=== PATIENT | female | born 1945 | race Asian ===

== ENCOUNTER 2017-06-18 19:40 | Inpatient (IN) | payer OTHER ==
[~2017-06-18] VITALS: Ht 162.6 cm; Wt 64.6 kg
[2017-06-18 20:53] LABS: microscopic required? NO
[2017-06-18 21:25] LABS: BASOPHIL % 0.5 % (0-2); PLATELET COUNT 240 x10^3mcL (130-400); RED CELL DISTRIBUTION WIDTH 13.5 % (11.5-14.5)
[2017-06-18 21:34] LABS: UA SPECIFIC GRAVITY <=1.005 (1.005-1.035); urine erythrocyte NEGATIVE (NEGATIVE)
[2017-06-18 21:35] LABS: CALCIUM 9.4 mg/dL (8.5-10.1); CARBON DIOXIDE 30.8 mmol/L (21-32); CHLORIDE SERUM 107 mmol/L (98-107); CREATININE SERUM 0.7 mg/dL (0.6-1.0); GFR1 > 60 mL/min; GLUCOSE SERUM 127 mg/dL (74-106); SODIUM SERUM 143 mmol/L (136-145)
[2017-06-18 21:39] LABS: ALBUMIN 3.8 g/dL (3.4-5.0); ALKALINE PHOSPHATASE 77 U/L (46-116); ALT/SGPT 28 U/L (14-59); AST/SGOT 19 U/L (15-37); BILIRUBIN TOTAL 0.3 mg/dL (0.20-1.00); TOTAL PROTEIN, SERUM 7.4 g/dL (6.4-8.2)
[2017-06-18 23:02] VITALS: BP 212/86
[2017-06-18 23:47] LABS: MAGNESIUM 2.5 mg/dL (1.8-2.4)
[2017-06-18 23:50] LABS: FREE T4 0.9 ng/dL (0.76-1.46); T4(THYROXINE) 5.9 ug/dL (4.7-13.3)
[2017-06-18 23:53] LABS: CHOLESTEROL/HDL RATIO 5.7
[2017-06-19 00:01] VITALS: BP 153/82
[2017-06-19 00:16] LABS: T3 TOTAL 0.81 ng/mL
[2017-06-19] MEDS ORDERED: METOPROLOL SUC100 M2 PO (04:34)
[2017-06-19 05:41] VITALS: BP 135/62
[2017-06-19 06:21] LABS: BASOPHIL % 0.4 % (0-2); PLATELET COUNT 211 x10^3mcL (130-400); RED CELL DISTRIBUTION WIDTH 13.1 % (11.5-14.5)
[2017-06-19 10:02] VITALS: BP 157/84
[2017-06-19 13:56] VITALS: BP 147/69
[2017-06-19 17:37] VITALS: Ht 162.6 cm; Wt 64.6 kg
[2017-06-19 18:01] VITALS: BP 156/84
[2017-06-19 21:15] VITALS: BP 157/67
[2017-06-19 22:24] LABS: CALCIUM 9.7 mg/dL (8.5-10.1); CARBON DIOXIDE 28.6 mmol/L (21-32); CHLORIDE SERUM 105 mmol/L (98-107); CREATININE SERUM 0.9 mg/dL (0.6-1.0); GFR1 > 60 mL/min; GLUCOSE SERUM 125 mg/dL (74-106); POTASSIUM SERUM 4.1 mmol/L (3.5-5.1); SODIUM SERUM 139 mmol/L (136-145)
[2017-06-20] VITALS (7 sets, daily range): BP systolic 130–175; BP diastolic 67–79
[2017-06-20 06:15] LABS: BASOPHIL % 0.6 % (0-2); PLATELET COUNT 239 x10^3mcL (130-400)
[2017-06-20 06:29] LABS: MAGNESIUM 2.3 mg/dL (1.8-2.4); PHOSPHOROUS 3.7 mg/dL (2.5-4.9)
[2017-06-21 05:13] VITALS: BP 141/77
[2017-06-21 06:20] LABS: BASOPHIL % 0.5 % (0-2); PLATELET COUNT 227 x10^3mcL (130-400); RED CELL DISTRIBUTION WIDTH 13.2 % (11.5-14.5)
[2017-06-21 06:36] LABS: CALCIUM 9.4 mg/dL (8.5-10.1); CARBON DIOXIDE 26.1 mmol/L (21-32); CHLORIDE SERUM 105 mmol/L (98-107); CREATININE SERUM 0.8 mg/dL (0.6-1.0); GFR1 > 60 mL/min; GLUCOSE SERUM 119 mg/dL (74-106); MAGNESIUM 2.1 mg/dL (1.8-2.4); PHOSPHOROUS 4.6 mg/dL (2.5-4.9); POTASSIUM SERUM 3.7 mmol/L (3.5-5.1); SODIUM SERUM 139 mmol/L (136-145)
[2017-06-21 09:08] VITALS: BP 126/60
[2017-06-21 10:03] VITALS: BP 126/60
[2017-06-21 11:32] VITALS: BP 153/71
[2017-06-21] MEDS ORDERED: LIPI10 PO (12:01)
[2017-06-21] MEDS ORDERED: ZES10 PO (12:01)
[2017-06-21] MEDS ORDERED: MECLIZINE HCL12.5 MG PO (12:03)
[2017-06-21 12:58] VITALS: BP 153/71
== END 2017-06-21 15:58 | disposition home or self-care (01) | DRG 304 ==
LOC: ED 19:40 → DU 22:01
PROVIDERS: Emergency Medicine; ADMIT Family Medicine Sports Medicine
DX: I16.0 Hypertensive urgency (principal); N17.0 Acute kidney failure with tubular necrosis; K72.90 Hepatic failure, unspecified without coma; F41.1 Generalized anxiety disorder; E11.65 Type 2 diabetes mellitus with hyperglycemia; E11.51 Type 2 diabetes mellitus with diabetic peripheral angiopathy without gangrene; E78.5 Hyperlipidemia, unspecified; E83.42 Hypomagnesemia; D64.9 Anemia, unspecified; I37.1 Nonrheumatic pulmonary valve insufficiency; I34.0 Nonrheumatic mitral (valve) insufficiency; I36.1 Nonrheumatic tricuspid (valve) insufficiency; Z68.23 Body mass index [BMI] 23.0-23.9, adult
CPT/HCPCS: 83880; 84439; J0360; J1885; J1940; J7030; Q0092

== ENCOUNTER 2017-07-09 14:27 | Observation (INO) | payer OTHER ==
[~2017-07-09] VITALS: Ht 165.1 cm; Wt 61.5 kg
[~2017-07-09 14:27] MED LIST: LIPI10 PO; MECLIZINE HCL12.5 MG PO; METOPROLOL SUC100 M2 PO; ZES10 PO
[2017-07-09 15:04] LABS: BASOPHIL % 0.4 % (0-2); PLATELET COUNT 260 x10^3mcL (130-400); RED CELL DISTRIBUTION WIDTH 12.8 % (11.5-14.5)
[2017-07-09 15:11] LABS: CALCIUM 8.9 mg/dL (8.5-10.1); CARBON DIOXIDE 33.7 mmol/L (21-32); CHLORIDE SERUM 105 mmol/L (98-107); CREATININE SERUM 0.9 mg/dL (0.6-1.0); GFR1 > 60 mL/min; GLUCOSE SERUM 184 mg/dL (74-106); SODIUM SERUM 141 mmol/L (136-145)
[2017-07-09 15:16] LABS: ALBUMIN 3.7 g/dL (3.4-5.0); ALKALINE PHOSPHATASE 64 U/L (46-116); ALT/SGPT 24 U/L (14-59); AST/SGOT 15 U/L (15-37); BILIRUBIN TOTAL 0.5 mg/dL (0.20-1.00)
[2017-07-09 15:20] LABS: CHOLESTEROL 110 mg/dL (<200)
[2017-07-09 16:05] LABS: UA SPECIFIC GRAVITY 1.015 (1.005-1.035); microscopic required? YES; urine erythrocyte 2+ (NEGATIVE)
[2017-07-09 19:48] LABS: MAGNESIUM 2.5 mg/dL (1.8-2.4)
[2017-07-09 20:29] VITALS: BP 148/65
[2017-07-09 20:30] VITALS: BP 148/65
[2017-07-09 20:33] VITALS: Ht 165.1 cm; Wt 61.5 kg
[2017-07-10 05:26] VITALS: BP 115/70
[2017-07-10 06:23] LABS: BASOPHIL % 0.6 % (0-2); PLATELET COUNT 244 x10^3mcL (130-400)
[2017-07-10 06:55] LABS: CALCIUM 8.5 mg/dL (8.5-10.1); CARBON DIOXIDE 26.5 mmol/L (21-32); CHLORIDE SERUM 108 mmol/L (98-107); CREATININE SERUM 0.7 mg/dL (0.6-1.0); GFR1 > 60 mL/min; GLUCOSE SERUM 125 mg/dL (74-106); POTASSIUM SERUM 3.7 mmol/L (3.5-5.1); SODIUM SERUM 141 mmol/L (136-145)
[2017-07-10 10:09] VITALS: BP 162/83
[2017-07-10 13:36] VITALS: BP 129/79
[2017-07-10 18:19] VITALS: BP 145/82
[2017-07-10] MEDS ORDERED: METFORMIN HYDR500 M1 PO (18:35)
[2017-07-10] MEDS ORDERED: ZES10 PO (18:36)
[2017-07-10] MEDS ORDERED: MECLIZINE HCL12.5 MG PO (18:36)
[2017-07-10] MEDS ORDERED: TOP50 PO (18:43)
[2017-07-10 19:06] VITALS: BP 145/82
[2017-07-11] MEDS ORDERED: BLOOD GLUCOSE1 EAC3 MC (15:34)
[2017-07-11] MEDS ORDERED: BLOOD GLUCOSE1 EACH MC (15:34)
== END 2017-07-10 20:19 | disposition home or self-care (01) | DRG 308 ==
LOC: ED 14:27 → DU 19:05
PROVIDERS: Emergency Medicine; ADMIT Family Medicine
DX: R00.1 Bradycardia, unspecified (principal); N17.0 Acute kidney failure with tubular necrosis; T44.7X5A Adverse effect of beta-adrenoreceptor antagonists, initial encounter; R55 Syncope and collapse; E83.41 Hypermagnesemia; E11.65 Type 2 diabetes mellitus with hyperglycemia; E11.51 Type 2 diabetes mellitus with diabetic peripheral angiopathy without gangrene; I10 Essential (primary) hypertension; D64.9 Anemia, unspecified; E78.5 Hyperlipidemia, unspecified; Z68.24 Body mass index [BMI] 24.0-24.9, adult; Y92.010 Kitchen of single-family (private) house as the place of occurrence of the external cause
CPT/HCPCS: 83880; C1758; G0378; G0480; J7030; Q0092

== ENCOUNTER 2017-09-11 23:33 | Emergency (ER) | payer OTHER ==
[~2017-09-11] VITALS: Ht 160 cm; Wt 60.8 kg
[~2017-09-11 23:33] MED LIST changes: +BLOOD GLUCOSE1 EAC3 MC; +BLOOD GLUCOSE1 EACH MC; +METFORMIN HYDR500 M1 PO; +TOP50 PO
[2017-09-11 23:39] VITALS: Ht 160 cm; Wt 60.8 kg
[2017-09-12 01:44] LABS: BASOPHIL % 0.6 % (0-2); PLATELET COUNT 254 x10^3mcL (130-400); RED CELL DISTRIBUTION WIDTH 13.6 % (11.5-14.5)
[2017-09-12 02:07] LABS: CALCIUM 9.1 mg/dL (8.5-10.1); CHLORIDE SERUM 107 mmol/L (98-107); CREATININE SERUM 0.8 mg/dL (0.6-1.0); GFR1 > 60 mL/min; GLUCOSE SERUM 130 mg/dL (74-106); POTASSIUM SERUM 4.1 mmol/L (3.5-5.1); SODIUM SERUM 142 mmol/L (136-145)
[2017-09-12 02:11] LABS: ALBUMIN 3.5 g/dL (3.4-5.0); ALKALINE PHOSPHATASE 87 U/L (46-116); ALT/SGPT 23 U/L (14-59); AST/SGOT 22 U/L (15-37); BILIRUBIN TOTAL 0.24 mg/dL (0.20-1.00); TOTAL PROTEIN, SERUM 7.2 g/dL (6.4-8.2)
[2017-09-12 02:48] VITALS: BP 144/81
== END 2017-09-12 02:48 | disposition home or self-care (01) ==
LOC: ED 23:33
PROVIDERS: Emergency Medicine
DX: R07.89 Other chest pain (principal); J06.9 Acute upper respiratory infection, unspecified; J21.9 Acute bronchiolitis, unspecified; J30.9 Allergic rhinitis, unspecified; I10 Essential (primary) hypertension; E11.9 Type 2 diabetes mellitus without complications
CPT/HCPCS: 36415; Q0163

== ENCOUNTER 2018-05-02 15:09 | Inpatient (IN) | payer OTHER ==
[~2018-05-02] VITALS: Ht 162.6 cm; Wt 60.0 kg
[2018-05-02 15:28] VITALS: Ht 162.6 cm; Wt 60.0 kg
[2018-05-02 16:44] LABS: BASOPHIL % 0.4 % (0-2); CALCIUM 9.3 mg/dL (8.5-10.1); CARBON DIOXIDE 28.4 mmol/L (21-32); CHLORIDE SERUM 105 mmol/L (98-107); CREATININE SERUM 0.9 mg/dL (0.6-1.0); GLUCOSE SERUM 115 mg/dL (74-106); PLATELET COUNT 246 x10^3mcL (130-400); POTASSIUM SERUM 3.9 mmol/L (3.5-5.1); RED CELL DISTRIBUTION WIDTH 12.8 % (11.5-14.5); SODIUM SERUM 141 mmol/L (136-145)
[2018-05-02 16:48] LABS: ALBUMIN 3.8 g/dL (3.4-5.0); ALKALINE PHOSPHATASE 69 U/L (46-116); ALT/SGPT 17 U/L (14-59); AST/SGOT 14 U/L (15-37); BILIRUBIN TOTAL 0.4 mg/dL (0.20-1.00); TOTAL PROTEIN, SERUM 7.1 g/dL (6.4-8.2)
[2018-05-02 17:25] LABS: microscopic required? NO
[2018-05-02 17:35] LABS: UA SPECIFIC GRAVITY <=1.005 (1.005-1.035); urine erythrocyte NEGATIVE (NEGATIVE)
[2018-05-02 17:45] LABS: AMPHETAMINE QUAL UR NONE DETECTED (See below)
[2018-05-02] MEDS ORDERED: MELOXICAM7.5 M1 (19:36)
[2018-05-02] MEDS ORDERED: ATENOLOL25 MG (19:36)
[2018-05-02 20:10] LABS: CHOLESTEROL/HDL RATIO 3.9; MAGNESIUM 2.6 mg/dL (1.8-2.4); PHOSPHOROUS 4.6 mg/dL (2.5-4.9)
[2018-05-02 20:18] LABS: T3 TOTAL 0.83 ng/mL
[2018-05-02 20:21] LABS: FREE T4 0.98 ng/dL (0.76-1.46); FREE THYROXINE INDEX 1.9 ug/dL (1.4-4.5)
[2018-05-02 20:28] VITALS: BP 179/76
[2018-05-03 05:34] VITALS: BP 127/54
[2018-05-03 10:00] VITALS: BP 175/82
[2018-05-03 13:05] VITALS: BP 172/76
[2018-05-03 14:53] VITALS: BP 148/67
[2018-05-03 17:21] VITALS: BP 156/61
[2018-05-03 21:09] VITALS: BP 104/68
[2018-05-04 06:11] VITALS: BP 138/60
[2018-05-04 06:44] LABS: BASOPHIL % 0.5 % (0-2); PLATELET COUNT 234 x10^3mcL (130-400); RED CELL DISTRIBUTION WIDTH 13.3 % (11.5-14.5)
[2018-05-04 06:56] LABS: CALCIUM 8.5 mg/dL (8.5-10.1); CHLORIDE SERUM 111 mmol/L (98-107); CREATININE SERUM 0.7 mg/dL (0.6-1.0); GLUCOSE SERUM 122 mg/dL (74-106); MAGNESIUM 2.5 mg/dL (1.8-2.4); PHOSPHOROUS 2.8 mg/dL (2.5-4.9); POTASSIUM SERUM 3.8 mmol/L (3.5-5.1); SODIUM SERUM 142 mmol/L (136-145)
[2018-05-04 09:14] VITALS: BP 128/71
[2018-05-04 11:26] VITALS: BP 128/71
[2018-05-04 12:12] VITALS: BP 130/69
[2018-05-04] MEDS ORDERED: LIPI10 PO (13:57)
[2018-05-04] MEDS ORDERED: ZES10 PO (13:57)
[2018-05-04] MEDS ORDERED: PRO60 PO (14:04)
== END 2018-05-04 14:20 | disposition home or self-care (01) | DRG 73 ==
LOC: ED 15:09 → DU 18:28
PROVIDERS: Emergency Medicine; Internal Medicine
DX: G90.8 Other disorders of autonomic nervous system (principal); N17.0 Acute kidney failure with tubular necrosis; I16.0 Hypertensive urgency; E11.65 Type 2 diabetes mellitus with hyperglycemia; E11.51 Type 2 diabetes mellitus with diabetic peripheral angiopathy without gangrene; R00.1 Bradycardia, unspecified; E83.41 Hypermagnesemia; E78.5 Hyperlipidemia, unspecified; Z68.22 Body mass index [BMI] 22.0-22.9, adult; Z79.84 Long term (current) use of oral hypoglycemic drugs; T44.7X5A Adverse effect of beta-adrenoreceptor antagonists, initial encounter; Y92.018 Other place in single-family (private) house as the place of occurrence of the external cause
CPT/HCPCS: 83880; 84439; 97110-GP; 97116-GP; 97530-GP; G0480; J3490; J7030; Q0092

== ENCOUNTER 2019-02-10 11:55 | Emergency (ER) | payer OTHER ==
[~2019-02-10] VITALS: Ht 160 cm; Wt 61.7 kg
[~2019-02-10 11:55] MED LIST changes: +ATENOLOL25 MG; +MELOXICAM7.5 M1; +PRO60 PO
[2019-02-10 11:58] VITALS: Ht 160 cm; Wt 61.7 kg
[2019-02-10 13:15] LABS: BASOPHIL % 0.4 % (0-2); PLATELET COUNT 210 x10^3mcL (130-400); RED CELL DISTRIBUTION WIDTH 13.2 % (11.5-14.5)
[2019-02-10 13:23] LABS: CALCIUM 9.2 mg/dL (8.5-10.1); CARBON DIOXIDE 30.5 mmol/L (21-32); CHLORIDE SERUM 105 mmol/L (98-107); CREATININE SERUM 0.8 mg/dL (0.6-1.0); GLUCOSE SERUM 127 mg/dL (74-106); POTASSIUM SERUM 3.7 mmol/L (3.5-5.1); SODIUM SERUM 140 mmol/L (136-145)
[2019-02-10 13:36] LABS: ALBUMIN 3.6 g/dL (3.4-5.0); ALKALINE PHOSPHATASE 62 U/L (46-116); ALT/SGPT 29 U/L (14-59); AST/SGOT 10 U/L (15-37); BILIRUBIN TOTAL 0.5 mg/dL (0.20-1.00); LIPASE 167 IU/L (73-393); T4(THYROXINE) 5.7 ug/dL (4.7-13.3); TOTAL PROTEIN, SERUM 6.9 g/dL (6.4-8.2)
[2019-02-10 18:24] VITALS: BP 153/76
== END 2019-02-10 18:24 | disposition home or self-care (01) ==
LOC: ED 11:55
PROVIDERS: Emergency Medicine
DX: K59.00 Constipation, unspecified (principal); I10 Essential (primary) hypertension; E11.9 Type 2 diabetes mellitus without complications; Z90.710 Acquired absence of both cervix and uterus
CPT/HCPCS: J7030; Q9967